=== PATIENT | male | born 1985 | race Caucasian/White ===

== ENCOUNTER 2017-01-12 09:02 | Emergency (ER) | payer OTHER ==
[2017-01-12] MEDS ORDERED: MOTRIN 600 MG PO ONE (09:12)
[2017-01-12] MEDS ORDERED: Adacel Vial IM ONE ×2 (09:14→10:23)
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
[2017-01-12] MEDS ORDERED: MOTRIN 600 MG ONE (10:23)
[2017-01-12 10:33] VITALS: BP 120/59; PULSE 80; O2SAT 97
--- NOTE | 2017-01-12 20:22 | XRAY ---
Indication: Pain following injury. Comparison: None 3 nonweightbearing views of the left foot obtained. No bony, articular, or soft tissue abnormalities.
== END 2017-01-12 10:33 | disposition home or self-care (01) ==
LOC: ED 09:02
DX: S90.32XA Contusion of left foot, initial encounter (principal); W18.41XA Slipping, tripping and stumbling without falling due to stepping on object, initial encounter; M79.602 Pain in left arm; M79.672 Pain in left foot; S60.511D Abrasion of right hand, subsequent encounter
CPT/HCPCS: 73630; 90471; 90715; 99283; A9270-GY

== ENCOUNTER 2024-04-25 19:12 | Emergency (ER) | payer OTHER ==
[2024-04-25 19:38] VITALS: TEMP 97.7
[2024-04-25 19:45] VITALS: O2SAT 97
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
[2024-04-25] MEDS ORDERED: MOTRIN 400 MG ONE (20:00)
[2024-04-25] MEDS: MOTRIN 400 MG PO ONE (20:00)
[2024-04-25 20:41] VITALS: RESP 18
[2024-04-25 21:10] VITALS: BP 120/87; PULSE 109
--- NOTE | 2024-04-26 08:15 | XRAY ---
Indication: Pain following injury. Comparison: None 4 view right knee demonstrates incidental posterior fabella. No acute bony, articular, or soft tissue abnormalities.
--- NOTE | 2024-04-26 08:17 | XRAY ---
Indication: Pain following injury. Comparison: May 06, 2018 4 view left knee unchanged again demonstrating incidental tiny proximal tibia bone island and posterior fabella. No new/acute bony, articular, or soft tissue abnormalities.
--- NOTE | 2024-04-26 08:21 | XRAY ---
Indication: Pain following injury. Comparison: None 3 view sacrum/coccyx demonstrates nondisplaced nonangulated distal sacral fracture. No other bony, articular, or soft tissue abnormalities. Comment: Fracture not reported by interpreting ER clinician. Telephone report given to Dr. Daniel at 0816 hrs. on April 26, 2024.
== END 2024-04-25 21:31 | disposition home or self-care (01) ==
LOC: ED 19:12
DX: M25.561 Pain in right knee (principal); M25.562 Pain in left knee; S39.92XA Unspecified injury of lower back, initial encounter; S32.19XA Other fracture of sacrum, initial encounter for closed fracture; V09.09XA Pedestrian injured in nontraffic accident involving other motor vehicles, initial encounter; Z79.899 Other long term (current) drug therapy
CPT/HCPCS: 72220; 73564; 99285; A9270-GY